=== PATIENT | male | born 1955 | race Caucasian/White ===

== ENCOUNTER 2017-12-27 11:04 | Day surgery (SDC) | payer BC ==
[2017-12-27] MEDS ORDERED: LIDOCAINE 2% (SDV) 5 ML INJ (13:02)
[2017-12-27] MEDS ORDERED: PROPOFOL 60 ML (13:02)
== END 2017-12-27 18:44 | disposition home or self-care (01) ==
LOC: GIL 11:04
DX: K21.0 Gastro-esophageal reflux disease with esophagitis (principal); K29.60 Other gastritis without bleeding; I10 Essential (primary) hypertension; E78.5 Hyperlipidemia, unspecified; E03.9 Hypothyroidism, unspecified; Z79.82 Long term (current) use of aspirin
CPT/HCPCS: 43239; 87081